=== PATIENT | female | born 1995 | race Caucasian/White ===

== ENCOUNTER 2017-10-15 10:27 | Emergency (ER) | payer SELFPAY ==
[2017-10-15 10:29] VITALS: BP 135/97; PULSE 152; RESP 20; TEMP 36.2; O2SAT 97; BMI 17.9
--- NOTE | 2017-10-15 10:40 | RAD_ITS ---
STUDY: X-RAY CHEST REASON FOR EXAM: Female, 22 years old. Chest pain. TECHNIQUE: Portable frontal. COMPARISON: None. FINDINGS: The lungs are clear and expanded. There is no demonstrated pleural abnormality. Normal size heart. Normal mediastinum and sanchez. Normal visualized pulmonary arteries. Normal visualized aortic arch and descending thoracic aorta. Normal visualized thoracic spine. Normal visualized ribs, clavicles, and shoulders. There is no demonstrated abnormality of the visualized soft tissue structures of the upper abdomen. RAD/Chest 1 View (Portable) IMPRESSION: No acute cardiopulmonary process. Electronically Signed: Carol Benítez MD at 11:06 EDT Tel , Service support ,
--- NOTE | 2017-10-15 10:40 | EKG12_ITS ---
Test Reason : CP Blood Pressure : / mmHG Vent. Rate : 127 BPM Atrial Rate : 127 BPM P-R Int : 114 ms QRS Dur : 084 ms QT Int : 290 ms P-R-T Axes : 082 083 035 degrees QTc Int : 421 ms Sinus tachycardia Otherwise normal ECG Confirmed by ACACIA CLEMONS, SERGE ([id number]), editorial assistant DONTA CASTILLO ([id number] on 10/19/2017 1:52:46 PM Referred By: RANDALL Confirmed By:SERGE ROGER MD
[2017-10-15 10:41] VITALS: BP 131/94; PULSE 122; RESP 14; O2SAT 96
--- NOTE | 2017-10-15 10:41 | ED.VISSUMM ---
- ER Visit Summary Date of Service: 10/15/17 Chief Complaint: Palpitations with accelerated heart rate History of Present Illness: The patient is a 22 F with history of palpitations, depression and anxiety, rheumatoid arthritis and fibromyalgia. Has had no recent surgeries but had prior knee surgeries. Has no underlying cardiac disease. Denies any IV drug abuse. No history of DVT or PEs. No family history. No leg pain or swelling. No hemoptysis. No pleuritic chest pain. No recent travel, surgery or mobilization. Patient states that for 6 months she has had accelerated heart rate. She does not think it secondary to her anxiety because she said her relaxation techniques have not been slowing her heart rate down. She denies any significant shortness of breath. She has had no hemoptysis. She denies any fever. This is not associated with exertion. Physical Examination: Well-appearing young female. Vital signs are stable and afebrile. Her heart rate is elevated at 152 during my exam it is around 125. She is in no distress. Her pulse ox is 97% on room air no signs of hypoxia. H EENT exam unremarkable. Neck nontender no lymphadenopathy. Lungs clear to auscultation bilaterally. No rales, rhonchi or wheezing. Equal and symmetrical. Heart tachycardic rate about 130 no murmur. Chest wall nontender. No ecchymosis or bruising no subcu air. Abdomen is soft nontender. Normal bowel sounds. She is moving all 4 extremities. They are neurovascularly intact. Calves are nontender without edema or cords. Neurologically she is awake and alert with no focal motor deficits. Patient is thin and small build. Test Results: CBC normal. White count 8. Normal H&H. Electrolytes unremarkable normal creatinine and gap. Troponin normal. TSH normal at 0.79. EKG sinus tachycardia rate of 127 but no acute NV or ischemia nor dysrhythmia. Chest x-ray normal cardiac silhouette and mediastinum. No infiltrate. Read both by the radiologist and myself. Emergency Department Course and Treatment: Patient will undergo cardiac workup. I do not think this is cardiac ischemia and she has no risk factors for DVT or PE or prior history. She also be given p.o. Ativan. Treatment Plan: Repeat exam patient is doing well at 1212. Currently her heart rates 106 while lying in bed. She also told me that she had a recent echocardiogram that she is awaiting the results from [facility]. She and I are both comfortable with her being discharged to home with outpatient follow-up. Disposition: Discharge Impression: Acute palpitations with sinus tachycardia Acute anxiety This note was generated with [employer] dictation software. It may contain incorrect words, spelling, and punctuation that were not noted in review of the chart prior to signing ED Disposition - Plan for ED Patient: Chief Complaint: Palpitations Referrals: Ceferino Aranda MD [Primary Care Provider] -
--- NOTE | 2017-10-15 10:44 | ED.DCSUM_ITS ---
- ER Visit Summary Date of Service: 10/15/17 Chief Complaint: Palpitations with accelerated heart rate History of Present Illness: The patient is a 22 F with history of palpitations, depression and anxiety, rheumatoid arthritis and fibromyalgia. Has had no recent surgeries but had prior knee surgeries. Has no underlying cardiac disease. Denies any IV drug abuse. No history of DVT or PEs. No family history. No leg pain or swelling. No hemoptysis. No pleuritic chest pain. No recent travel, surgery or mobilization. Patient states that for 6 months she has had accelerated heart rate. She does not think it secondary to her anxiety because she said her relaxation techniques have not been slowing her heart rate down. She denies any significant shortness of breath. She has had no hemoptysis. She denies any fever. This is not associated with exertion. Physical Examination: Well-appearing young female. Vital signs are stable and afebrile. Her heart rate is elevated at 152 during my exam it is around 125. She is in no distress. Her pulse ox is 97% on room air no signs of hypoxia. H EENT exam unremarkable. Neck nontender no lymphadenopathy. Lungs clear to auscultation bilaterally. No rales, rhonchi or wheezing. Equal and symmetrical. Heart tachycardic rate about 130 no murmur. Chest wall nontender. No ecchymosis or bruising no subcu air. Abdomen is soft nontender. Normal bowel sounds. She is moving all 4 extremities. They are neurovascularly intact. Calves are nontender without edema or cords. Neurologically she is awake and alert with no focal motor deficits. Patient is thin and small build. Test Results: CBC normal. White count 8. Normal H&H. Electrolytes unremarkable normal creatinine and gap. Troponin normal. TSH normal at 0.79. EKG sinus tachycardia rate of 127 but no acute PA or ischemia nor dysrhythmia. Chest x-ray normal cardiac silhouette and mediastinum. No infiltrate. Read both by the radiologist and myself. Emergency Department Course and Treatment: Patient will undergo cardiac workup. I do not think this is cardiac ischemia and she has no risk factors for DVT or PE or prior history. She also be given p.o. Ativan. Treatment Plan: Repeat exam patient is doing well at 1212. Currently her heart rates 106 while lying in bed. She also told me that she had a recent echocardiogram that she is awaiting the results from [facility]. She and I are both comfortable with her being discharged to home with outpatient follow- up. Disposition: Discharge Impression: Acute palpitations with sinus tachycardia Acute anxiety This note was generated with [employer] dictation software. It may contain incorrect words, spelling, and punctuation that were not noted in review of the chart prior to signing ED Disposition - Plan for ED Patient: Chief Complaint: Palpitations Referrals: Ceferino Aranda MD [Primary Care Provider] -
[2017-10-15 10:49] LABS: Absolute Lymphocyte Count 2.24 X10^3/ul (0.83-4.51); Basophil# 0.02 X10^3/uL; Basophil% 0.2 % (0-1); Eosinophil# 0.07 X10^3/uL; Eosinophils% 0.9 % (0-5); Hematocrit 44.4 % (37-47); Hemoglobin 15.8 g/dl (12.0-15.0); Lymphocyte # 2.24 X10^3/ul (4.0); Lymphocyte % 27.4 % (19-41); Mean Corp Hgb Conc 35.6 g/gl (32-36); Mean Corpuscular Hgb 34.1 pg (27.0-32.0); Mean Corpuscular Volume 95.7 fL (81-99); Mean Platelet Vol. 10.2 fl (6.2-12.0); Monocyte# 0.81 X10^3/uL; Monocyte% 9.9 % (0-10); Neutrophil # 5.02 X10^3/uL (2.7-7.7); Neutrophil % 61.5 % (47-70); POSITIVE COUNT NO; POSITIVE DIFFERENTIAL NO; POSITIVE MORPHOLOGY NO; Platelet Count 179 K/mm3 (150-450); RBC Distribution Width CV 12.7 % (11.6-14.6); Red Blood Count 4.64 M/mm3 (4.2-5.4); White Blood Count 8.2 K/mm3 (4.4-11.0)
[2017-10-15 10:52] VITALS: O2SAT 99
--- NOTE | 2017-10-15 10:53 | ED.RN ---
NO OLD EKG
[2017-10-15] MEDS: LORazepam 1 MG Tablet PO (10:55)
[2017-10-15 11:13] LABS: Anion Gap 10 (5-15); BUN 7 mg/dL (7-18); BUN/Creat Ratio 9.4 RATIO (10-20); Calcium,Total 9.2 mg/dL (8.5-10.1); Chloride 100 mmol/L (98-107); Creatinine, Serum 0.74 mg/dL (0.55-1.02); EST Glomerular Filtration Rate 103 mL/min (>60); Est Glom Filt Rate - Afr Amer 125 mL/min (>60); Estimated Creatinine Clearance 82.97 ml/min; Glucose 117 mg/dL (74-106); Potassium 3.6 mmol/L (3.5-5.1); Sodium Level 135 mmol/L (136-145); Thyroid Stim Hormone (TSH) 0.79 uIU/mL (0.358-3.74)
[2017-10-15 11:28] VITALS: BP 126/80; PULSE 122; RESP 16; O2SAT 97
--- NOTE | 2017-10-15 12:14 | ED.DEP ---
ED Disposition - Plan for ED Patient: Disposition: Home or Assisted Living Chief Complaint: Palpitations Instructions: ED Palpitations Referrals: Ceferino Aranda MD [Primary Care Provider] - As Needed Additional Instructions: Call and follow-up with your echocardiogram results. All your lab work and chest x-ray were normal today.
[2017-10-15 12:36] VITALS: BP 114/84; PULSE 118; RESP 16; O2SAT 100
== END 2017-10-15 12:37 | disposition home or self-care (01) ==
PROVIDERS: Emergency Provider Emergency Medicine; Family Provider Family Medicine; PCP Family Medicine
DX: R00.2 Palpitations (principal); R00.0 Tachycardia, unspecified; F41.9 Anxiety disorder, unspecified; M79.7 Fibromyalgia; Z72.0 Tobacco use
CPT/HCPCS: 71045; 80048; 84443; 84484; 85025; 93005; 99285; A4216